=== PATIENT | male | born 1990 | race Caucasian/White ===

== ENCOUNTER → 2017-08-27 | Day surgery (SDC) | payer OTHER ==
[2017-08-26 11:47] VITALS: BMI 30.4
[~2017-08-27] MED LIST: BACITRACIN 500 UNIT/GM OINT 28.4 GM TUBE TOPICAL ONE; DEXAMETHASONE SOD PHOSPHATE 10 MG/ML 1 ML VIAL IV ONE; DEXAMETHASONE SOD PHOSPHATE 4 MG/ML 1 ML VIAL IV ONE; ENALAPRILAT 1.25 MG/ML 1 ML VIAL IVP ONE; LACTATED RINGERS 1,000 ML IV SCH; LIDOCAINE 1% 20 ML VIAL (10MG/ML) FOR IV START INTRADERMA ONE; LIDOCAINE 1% INJ 10MG/ML (20 ML MDV) ONE; LIDOCAINE-EPINEPHRINE (PF) 5 ML AMPUL SUBMUCOSAL ONE; MIDAZOLAM 2 MG/2 ML VIAL ONE; ONDANSETRON 4 MG/2 ML VIAL IVP ONE; PROPOFOL 10 MG/ML 20 ML VIAL IV ONE; SODIUM CHLORIDE 0.9% 50 ML with ceFAZolin 1,000 MG IV ONE; SUCCINYLCHOLINE CHLORIDE 100 MG/5 ML SYR IV ONE; ceFAZolin 1,000 MG in DEXTROSE/WATER 1 50ML.BAG IV ONE; diphenhydrAMINE 50 MG/ML 1 ML VIAL IVP ONE; fentaNYL (PF) 50 MCG/ML 2 ML AMP ONE
[2017-08-27] MEDS: OXYMETAZOLINE 0.05% NASL SPRAY 1 SPRAY BOTTLE NASAL ONE ×5 (10:50→11:10)
--- NOTE | 2017-08-27 12:09 | P.OP ---
Date of Procedure: 08/27/17 Preoperative Diagnosis: Deviated nasal septum Inferior turbinate hypertrophy Postoperative Diagnosis: Same Procedure(s) Performed: Septoplasty Inferior turbinoplasty Anesthesia: LINNA Surgeon: Joseph Singh Estimated Blood Loss (ml): 20 Pathology: other (Nasal septal bone and cartilage) Condition: stable Disposition: PACU Indications for Procedure: This is a 27-year-old white male with a long history of chronic nasal airway obstruction and congestion bilaterally left greater than right which did not improve with medical management Operative Findings: Nasal septum deviated to the left chiefly anteriorly admitted septum with spurs anteriorly on the right and posteriorly on the left with inferior turbinate hypertrophy bilaterally Description of Procedure: The patient was brought in the operative suite and placed in a supine position. Patient underwent induction of general anesthesia with oral endotracheal intubation without difficulty. The patient was prepped and draped in usual aseptic fashion. 1% lidocaine with 1-100,000 epinephrine was infused submucosally both sides nasal septum. While this is taking vasoconstrictive effect the inferior turbinates were infractured with the Wagoner elevator partial submucous resection inferior turbinates performed with Coblation wand ablating a portion of the submucosal soft tissue and then outfractured with the Wagoner elevator. A left hemitransfixion incision was made with the mucoperichondrial mucopus of flap on the left elevated. Bony cartilaginous junction was disarticulated and the mucoperiosteal flap on the right was elevated. Bony nasal septal deformities were removed with Mao forceps. An inferior cartilaginous strip was removed leaving a full 1.5 cm caudal strut. Checking intranasally this corrected the nasoseptal deformities and the hemitransfixion incision was closed with a running 4-0 chromic suture. Bilateral Bains airway splints coated bacitracin ointment were placed in nasal cavities and sutured trans-septally with a 4-0 Vicryl suture. The patient was then allowed to emerge from general anesthesia having tolerated procedure well was extubated in the operating suite and transferred to the postop recovery area in satisfactory condition.
[2017-08-27 12:28] VITALS: TEMP 96.9
[2017-08-27] MEDS: HYDROmorphone 0.5 MG/0.5 ML SYRINGE IVP PRN ×4 (12:29→12:48)
[2017-08-27 13:48] VITALS: RESP 18
[2017-08-27 14:13] VITALS: BP 124/81; PULSE 69
== END | disposition home or self-care (01) ==
LOC: OR 09:53
PROVIDERS: ATTEND Otolaryngology
DX: J34.2 Deviated nasal septum (principal); J34.3 Hypertrophy of nasal turbinates; R43.8 Other disturbances of smell and taste
CPT/HCPCS: 88300